=== PATIENT | female | born 1940 | race Caucasian/White ===

== ENCOUNTER → 2016-07-26 | Outpatient (CLI) | payer MEDICARE ==
[~2016-07-26] MED LIST: ALBUTEROL17 GM INH; AMARYL PO; ATIVAN0.5 M1 PO; BENTYL20 MG PO; CALCIUM PO; GLUCOPHAGE500 M1 PO; GLUCOTROL PO; JANUVIA50 MG PO; LISINOPRIL-HCTZ1 T14 PO; LISINOPRIL-HCTZ1 T18 PO; LOPRESSOR PO; LORAZEPAM0.5 MG PO; METFORMIN HCL500 M2 PO; METFORMIN PO; MULTIPLE VITAMI1 T12 PO; OMEPRAZOLE20 M2 PO; PRAVASTATIN SOD20 MG PO; PRILOSEC PO; PRILOSEC20 MG PO; PRIMATENE INH; TOPROL XL PO; TOPROL XL50 MG PO; TRICOR145 MG PO; VALSARTAN-HCTZ1 EAC1 PO; VITAMIN D400 UNI1 PO; ZANTAC150 M1 PO; ZESTORETIC 20/11 TAB PO
--- NOTE | ~2016-07-26 | CR63 ---
[facility] A Service of [facility] & [facility] RADIOLOGY TEXT RESULTS PATIENT: AMY MCCOY LOCATION: [facility] : 42 UNIT #: [id number] AGE: [address]: Olegario Downs MD SEX: F ORDER DR: [id number] [facility] [address] [place], [place] [address] [id number] O MR#: [id number] Acc #: [id number] NAME: AMY MCCOY. : 1940 SEX: F STUDY DATE/TIME: 07/26/2016 7:29 UNIT: [facility] ROOM: STUDY DESCRIPTION: CR Chest 2 View Attending Physician: Olegario Downs M.D. Referring Physician: Olegario Downs M.D. Ordering Physician: Olegario Downs M.D. Primary Care Physician: Gilson Gabriel M.D. MEDICAL IMAGING REPORT This report is preliminary unless electronic signature is present EXAM Chest 2 views 07/26/2016 INDICATIONS 76-year-old female with a history of shortness of air that began today. Renal mass, renal malignancy and breast cancer. Status post radiation therapy, hypertension, asthma. TECHNIQUE Two-view chest was performed and compared with 03/08/2016. Postop changes of axillary node dissection are present on the left. Cardiac silhouette borderline in size and stable. Lungs are emphysematous. Vascularity unremarkable. There is no new effusion pneumothorax or dense consolidation. There is thoracic spondylosis. IMPRESSION 1. Emphysematous changes and borderline cardiac size. No significant change from 03/08/2016. Postop changes of axillary dissection on the left. Dictated by... Alberto Solano M.D. THIS IS AN ELECTRONICALLY VERIFIED REPORT Alberto Solano M.D. at 07/26/2016 3:23 PM Niall TD: 07/26/2016 11:22 JOB #: [id number] MEDICAL IMAGING REPORT COPY
[2016-07-26 07:33] LABS: HEMATOCRIT 38.3 % (35.0-45.0); HEMOGLOBIN 13.1 gm/dL (12.0-16.0); MEAN CELL VOLUME 87.3 FL (83-96); MEAN CORPUSCULAR HEMOGLOBIN 29.9 PG (28-34); MEAN CORPUSCULAR HGB CONC 34.2 g/dL (30-36); MEAN PLATELET VOLUME 7.7 FL (6.5-11.5); RED BLOOD COUNT 4.39 X10e (3.90-5.30); RED CELL DISTRIBUTION WIDTH 13.2 % (11.0-15.5); WHITE BLOOD COUNT 7.5 X10e3 (4.0-10.5)
[2016-07-26 08:08] LABS: ALBUMIN SERUM 3.9 g/dL (3.5-5.0); BILIRUBIN,TOTAL 0.7 mg/dL (0.2-2.0); BUN/CREATININE RATIO 14.54; CALCIUM SERUM 8.9 mg/dL (8.4-10.2); CREATININE SERUM 1.1 mg/dL (0.6-1.4); GLOM FILT RATE Estimated 51.6 mL/min (>60); POTASSIUM 3.9 mmol/L (3.5-5.1); PROTEIN TOTAL SERUM 7.8 g/dL (6.0-8.3)
== END | disposition home or self-care (01) ==
LOC: CRAD 07:06
PROVIDERS: Urology
DX: N28.89 Other specified disorders of kidney and ureter (principal); J43.9 Emphysema, unspecified; Z98.890 Other specified postprocedural states
CPT/HCPCS: 36415; 71020; 80053; 85027

== ENCOUNTER 2016-09-17 10:06 | Emergency (ER) | payer MEDICARE ==
--- NOTE | ~2016-09-17 | EKG ---
PATIENT: AMY MCCOY UNIT #: [id number] Ventricular Rate: 70 BPM Atrial Rate: 70 BPM P-R Interval: 196 ms QRS Duration: 78 ms Q-T Interval: 400 ms QTC Calculation(Bezet): 432 ms P [place]: 28 degrees Calculated R [place]: -12 degrees Calculated T [place]: 15 degrees Diagnosis Line: Normal sinus rhythm Diagnosis Line: Normal ECG Diagnosis Line: When compared with ECG of 15-MAY-2015 12:33, Diagnosis Line: No significant change was found Diagnosis Line: Confirmed by ALTON MONTOYA MD ([id number]) on 09/17/2016 Diagnosis Line: 10:52:09 PM INTERPRETING MD: LINDSAY RAYMUNDO
--- NOTE | ~2016-09-17 | CR72 ---
[facility] A Service of [facility] & [facility] RADIOLOGY TEXT RESULTS PATIENT: AMY MCCOY LOCATION: [facility] : 42 UNIT #: [id number] AGE: [address]: Zhang Emerson MD SEX: F ORDER DR: [id number] [facility] [address] [place], [place] [address] [id number] E MR#: [id number] Acc #: [id number] NAME: AMY MCCOY : 1940 SEX: F STUDY DATE/TIME: 09/17/2016 10:08 UNIT: [facility] ROOM: STUDY DESCRIPTION: CR Chest Single View Portable Attending Physician: Zhang Emerson M.D. Ordering Physician: Zhang Emerson M.D. Primary Care Physician: Gilson Gabriel M.D. MEDICAL IMAGING REPORT This report is preliminary unless electronic signature is present EXAM Portable chest, 1 view DATE OF STUDY 09/17/2016 COMPARISON 07/26/2016 single-view chest. HISTORY Chest pain for 1 day. FINDINGS There is pulmonary hyperexpansion and there is slight elevation of the right hemidiaphragm but no consolidation, effusion, pneumothorax, suspicious nodule, or other acute abnormality. Borderline cardiomegaly. Dictated by... Alfonzo Rocha M.D. THIS IS AN ELECTRONICALLY VERIFIED REPORT Alfonzo Rocha M.D. at 09/18/2016 9:49 AM TEV/aa TD: 09/17/2016 12:47 JOB #: [id number] MEDICAL IMAGING REPORT Page 1 of 1 COPY
[~2016-09-17 10:06] MED LIST changes: -ATIVAN0.5 M1 PO; -JANUVIA50 MG PO; -OMEPRAZOLE20 M2 PO; -TOPROL XL50 MG PO; -VALSARTAN-HCTZ1 EAC1 PO
[2016-09-17 10:19] LABS: BASOPHIL# 0.1 X10e3 (0-0.3); BASOPHIL% 0.7 % (0-2.5); EOSINOPHIL% 0.4 % (0.0-7.0); HEMATOCRIT 38.6 % (35.0-45.0); HEMOGLOBIN 13.2 gm/dL (12.0-16.0); LYMPHOCYTE# 2.5 X10e3 (1.0-3.5); LYMPHOCYTE% 25.7 % (17.0-45.0); MEAN CELL VOLUME 87.5 FL (83-96); MEAN CORPUSCULAR HEMOGLOBIN 29.9 PG (28-34); MEAN CORPUSCULAR HGB CONC 34.2 g/dL (30-36); MEAN PLATELET VOLUME 8.8 FL (6.5-11.5); MONOCYTE# 0.7 X10e3 (0-1.0); MONOCYTE% 6.7 % (3.0-12.0); NEUTROPHIL# 6.5 X10e3 (1.5-7.1); NEUTROPHIL% 66.5 % (40-75); PLATELET COUNT 237 X10e3 (140-420); RED BLOOD COUNT 4.41 X10e (3.90-5.30); RED CELL DISTRIBUTION WIDTH 13.4 % (11.0-15.5); WHITE BLOOD COUNT 9.7 X10e3 (4.0-10.5)
[2016-09-17 10:23] LABS: DIFF IND NO
[2016-09-17 10:25] LABS: POC - CKMB <1.0 ng/mL (0.0-7.9); POC - TROPONIN <0.05 ng/mL (<=0.05)
[2016-09-17 10:42] LABS: ALKALINE PHOSPHATASE 47 U/L (32-92); ALT (SGPT) 10 U/L (10-40); AST (SGOT) 12 U/L (10-42); BILIRUBIN,TOTAL 0.7 mg/dL (0.2-2.0); BLOOD UREA NITROGEN 17 mg/dL (9-23); BUN/CREATININE RATIO 18.88; CALCIUM SERUM 8.6 mg/dL (8.4-10.2); CARBON DIOXIDE 24 mmol/L (22-31); CHLORIDE 96 mmol/L (100-111); CREATININE SERUM 0.9 mg/dL (0.6-1.4); GLUCOSE FASTING 162 mg/dL (70-110); LIPASE 51 U/L (22-51); PROTEIN TOTAL SERUM 7.6 g/dL (6.0-8.3); SODIUM 130 mmol/L (135-145)
[2016-09-17 10:52] LABS: BILIRUBIN, DIRECT <0.1 mg/dL (0.0-0.2); BILIRUBIN,INDIRECT 0.6 mg/dL (0.0-0.9)
[2016-09-17 11:49] LABS: POC - CKMB <1.0 ng/mL (0.0-7.9); POC - TROPONIN <0.05 ng/mL (<=0.05)
[2016-10-03] MEDS ORDERED: VITAMIN D400 UNI1 PO (08:19)
[2016-10-03] MEDS ORDERED: TOPROL XL50 MG PO (08:19)
[2016-10-03] MEDS ORDERED: VALSARTAN-HCTZ1 EAC1 PO (08:19)
[2016-10-03] MEDS ORDERED: JANUVIA50 MG PO (08:19)
[2016-10-03] MEDS ORDERED: PRAVASTATIN SOD20 MG PO (08:20)
[2016-10-03] MEDS ORDERED: OMEPRAZOLE20 M2 PO (08:20)
[2016-10-03] MEDS ORDERED: AMARYL PO (08:20)
[2016-10-03] MEDS ORDERED: ATIVAN0.5 M1 PO (08:20)
== END 2016-09-17 12:21 | disposition home or self-care (01) ==
LOC: CED 10:06
PROVIDERS: Emergency Medicine
DX: R10.13 Epigastric pain (principal); R07.9 Chest pain, unspecified; R06.02 Shortness of breath; E11.9 Type 2 diabetes mellitus without complications; I10 Essential (primary) hypertension; Z90.49 Acquired absence of other specified parts of digestive tract; Z90.710 Acquired absence of both cervix and uterus; Z85.3 Personal history of malignant neoplasm of breast; Z85.528 Personal history of other malignant neoplasm of kidney; Z88.6 Allergy status to analgesic agent; Z88.8 Allergy status to other drugs, medicaments and biological substances
CPT/HCPCS: 36415; 71010; 80048; 80076; 82553; 83690; 83880; 84484; 85025; 93005; 99284

== ENCOUNTER → 2016-09-28 | Outpatient (CLI) | payer MEDICARE ==
[~2016-09-28] MED LIST changes: +ATIVAN0.5 M1 PO; +JANUVIA50 MG PO; +OMEPRAZOLE20 M2 PO; +TOPROL XL50 MG PO; +VALSARTAN-HCTZ1 EAC1 PO
[2016-09-28 09:56] LABS: CALCIUM SERUM 8.8 mg/dL (8.4-10.2); GLOM FILT RATE Estimated 55.5 mL/min (>60); POTASSIUM 4.3 mmol/L (3.5-5.1)
== END | disposition home or self-care (01) ==
LOC: CAMB 07:54
PROVIDERS: Surgery
DX: Z01.812 Encounter for preprocedural laboratory examination (principal); K43.9 Ventral hernia without obstruction or gangrene
CPT/HCPCS: 36415; 80048

== ENCOUNTER → 2016-10-03 | Day surgery (SDC) | payer MEDICARE ==
--- NOTE | ~2016-10-03 | OR ---
Unit #: [id number] #: [id number] Patient: AMY MCCOY [id number] [address] [place], [place] [address] [id number] O MR#: [id number] NAME: AMY MCCOY ROOM: Date of Procedure: 10/03/2016 Admission Date: 10/03/2016 Surgeon: Mak Kurtz Jr., M.D. : 1940 Attending Physician: Mak Kurtz Jr., M.D. Primary Care Physician: Gilson Gabriel M.D. OPERATIVE REPORT INDICATION FOR PROCEDURE The patient is a 76-year-old white female, recently presented to the office complaining of pain in the upper midline of her abdomen and was noted to have an incarcerated upper midline ventral hernia. This has been causing discomfort, enlarging in size and she is brought in this time at her request for repair of this laparoscopically. She understands the procedure including the risks, including that of recurrence, infection, bleeding, intra-abdominal organ injury, and consents. PREOPERATIVE DIAGNOSIS Incarcerated upper midline ventral hernia. POSTOPERATIVE DIAGNOSIS Incarcerated upper midline ventral hernia, noting approximately a 4 cm defect. ANESTHESIA General with endotracheal intubation and 0.5% Marcaine with epinephrine to all port sites. PROCEDURE PERFORMED Laparoscopic reduction and ventral hernia repair of incarcerated upper midline ventral hernia using a 6 x 8 inch Ventralight mesh. DESCRIPTION OF PROCEDURE The patient was positioned in supine position. After being anesthetized and intubated, was prepped and draped in routine fashion for repair and reduction of her ventral hernia. A 5-mm Optiview was introduced in the right lateral abdominal wall area and the abdomen was inflated with CO2 gas. The camera was introduced in the abdomen. There was no evidence of any injury related to introduction of the Optiview. The patient was noted to have an incarcerated upper midline ventral hernia. Additional 11 mm port was placed in right lower quadrant abdominal wall area and a 5 mm in the left upper and left lower quadrant abdominal wall areas under direct visualization. Using the grasping clamp and hook scissors, the omentum within the hernia was then reduced. The defect was approximately 4 to 5 cm in diameter. After hemostasis was achieved with Bovie cautery and several small hemoclips, a 6 x 8 inch Ventralight mesh was tacked in 4 corners, soaked in antibiotic solution, placed intraabdominal, and brought up against the anterior abdominal wall covering the defect with the Endo Close technique. It was then tacked in place with absorbable SecureStrap tacks and after this was completed, the sutures holding it up Unit #: [id number] #: [id number] Patient: AMY MCCOY were then lysed. There was excellent coverage of the defect with good security of the graft and no evidence of any bleeding. CO2 was then expressed from the abdomen after the fascia in the larger port site was approximated using the neoClose technique. The ports were removed. There was no evidence of any bleeding from the port sites. After all CO2 was expressed from the abdomen, the port sites were injected with 0.5% Marcaine with epinephrine. The skin edges were approximated with stainless-steel skin clips and skin stapling device. Sterile dressings were applied externally. Estimated blood loss less than 50 mL. The patient received less than 2000 mL of crystalloid solution during the procedure. Sponges and instrument counts were correct x3. No drains used. No complications. The patient was taken to the recovery room with stable vital signs in satisfactory condition. Dictated by... Mak Kurtz Jr., M.D. JMB/rianna TD: 10/20/2016 01:53 JOB #: [id number] OPERATIVE REPORT Page 1 of 1 X Mak Kurtz MD X PROCEDURE OPERATIVE NOTE
== END | disposition home or self-care (01) ==
LOC: CSUR 05:32
DX: K43.6 Other and unspecified ventral hernia with obstruction, without gangrene (principal); I12.9 Hypertensive chronic kidney disease with stage 1 through stage 4 chronic kidney disease, or unspecified chronic kidney disease; E11.22 Type 2 diabetes mellitus with diabetic chronic kidney disease; E11.65 Type 2 diabetes mellitus with hyperglycemia; N18.9 Chronic kidney disease, unspecified; J45.909 Unspecified asthma, uncomplicated; K21.9 Gastro-esophageal reflux disease without esophagitis; M15.9 Polyosteoarthritis, unspecified; E78.00 Pure hypercholesterolemia, unspecified; E78.5 Hyperlipidemia, unspecified; F41.1 Generalized anxiety disorder; Z87.01 Personal history of pneumonia (recurrent); Z85.528 Personal history of other malignant neoplasm of kidney; Z85.3 Personal history of malignant neoplasm of breast; Z80.0 Family history of malignant neoplasm of digestive organs; Z88.8 Allergy status to other drugs, medicaments and biological substances; Z79.84 Long term (current) use of oral hypoglycemic drugs; Z79.2 Long term (current) use of antibiotics; Z79.1 Long term (current) use of non-steroidal anti-inflammatories (NSAID); Z79.899 Other long term (current) drug therapy; Z90.710 Acquired absence of both cervix and uterus; Z90.49 Acquired absence of other specified parts of digestive tract; Z98.890 Other specified postprocedural states
CPT/HCPCS: 82947; 84295; C1781; J0131; J0330; J0690; J1170; J1650; J2250; J2405; J3010

== ENCOUNTER → 2016-11-24 | Outpatient (CLI) | payer MEDICARE ==
--- NOTE | ~2016-11-24 | MY29 ---
[facility] A Service of [facility] RADIOLOGY TEXT RESULTS PATIENT: AMY MCCOY LOCATION: [facility] : 42 UNIT #: [id number] AGE: [address]: SIENNA GABRIEL MD (INT MED) SEX: F ORDER DR: [id number] [facility] [address] [place], [place] [address] [id number] O MR#: [id number] Acc #: [id number] NAME: AMY MCCOY. : 1940 SEX: F STUDY DATE/TIME: 11/24/2016 14:28 UNIT: [facility] ROOM: STUDY DESCRIPTION: [facility] SCREENING W/ CAD BILAT Attending Physician: Sienna Gabriel M.D. Referring Physician: Sienna Gabriel M.D. Ordering Physician: Sienna Gabriel M.D. Primary Care Physician: Sienna Gabriel M.D. MEDICAL IMAGING REPORT This report is preliminary unless electronic signature is present EXAM Digital screening mammogram, 11/24/2016. COMPARISON 08/09/2015, 05/05/2014 HISTORY The patient has had previous left breast lumpectomy and radiation therapy. Screening FINDINGS Bilateral digital screening mammograms were obtained and reviewed with a FDA-approved CAD device. Examination demonstrates substantial decrease of left breast volume consistent with the patient's history of lumpectomy and radiation therapy. There is some associated skin thickening. Radiation or localization clips are seen within the medial left breast. Scattered benign calcifications. No dominant masses or spiculated lesions. No nipple retraction. IMPRESSION 1. Stable post therapeutic changes of the left breast. 2. No mammographic evidence of malignancy. Patients over the age of 40 are entered into a reminder system with target due date for the next mammogram. A result letter will also be sent to the patient. BIRADS: 2 Benign finding. [facility] A Service of [facility] RADIOLOGY TEXT RESULTS PATIENT: AMY MCCOY LOCATION: [facility] : 42 UNIT #: [id number] AGE: [address]: SIENNA GABRIEL MD (INT MED) SEX: F ORDER DR: Dictated by... Juan José Martin M.D. THIS IS AN ELECTRONICALLY VERIFIED REPORT Juan José Martin M.D. at 11/28/2016 9:30 AM CHRISTOPHER/seven TD: 11/24/2016 17:24 JOB #: [id number] MEDICAL IMAGING REPORT Page 1 of 1 COPY
== END | disposition home or self-care (01) ==
LOC: CWCC 14:03
DX: Z12.31 Encounter for screening mammogram for malignant neoplasm of breast (principal); Z98.890 Other specified postprocedural states
CPT/HCPCS: G0202

== ENCOUNTER 2017-01-21 16:49 | Emergency (ER) | payer MEDICARE ==
[~2017-01-21] VITALS: Ht 162.6 cm; Wt 85.7 kg
--- NOTE | ~2017-01-21 | CT16 ---
[facility] A Service of [facility] RADIOLOGY TEXT RESULTS PATIENT: AMY MCCOY LOCATION: [facility] : 42 UNIT #: [id number] AGE: [address]: Zhang Lloyd MD SEX: F ORDER DR: [id number] [facility] [address] [place], [place] [address] [id number] E MR#: [id number] Acc #: [id number] NAME: AMY MCCOY : 1940 SEX: F STUDY DATE/TIME: 01/21/2017 20:39 UNIT: [facility] ROOM: STUDY DESCRIPTION: CT Angio Chest for PE Attending Physician: Zhang Lloyd Ordering Physician: Ed Vinay Allen M.D. Primary Care Physician: Gilson Gabriel M.D. MEDICAL IMAGING REPORT This report is preliminary unless electronic signature is present EXAM CT angiography of the chest with IV contrast, PE protocol COMPARISON CT abdomen and pelvis dated December 18, 2014. INDICATION The patient is a 76-year-old female with mid sternal chest pain for 4 hours. Tachycardia. FINDINGS Axial CT imaging of the chest was performed after IV administration of 100 mL Isovue-370. Coronal MIPs and sagittal reformats were constructed. This CT exam was performed with one or more of the following radiation dose reduction techniques: automatic exposure control, adjustment of mA and/or kV according to patient size, and iterative reconstruction. No adenopathy within the chest. No acute fractures or suspicious osseous lesions. Surgical clips in the left axilla. Airways are widely patent. There is top normal heart size. Small hiatal hernia. No evidence of pneumothorax, pleural effusion or acute airspace disease. There is pleural-based band-like scarring in the right lateral lung base. This is unchanged from December 18, 2014. There is normal caliber of the thoracic aorta is widely patent. Top normal caliber of the main pulmonary artery measuring up to 3.1 cm, nonspecific finding which can be seen in pulmonary arterial hypertension. No evidence of pulmonary embolus. Left-sided coronary artery calcifications. Prior cholecystectomy. Asymmetric atrophy of the right kidney. There are single bilateral adrenal nodules measuring up to 1.6 cm on the right and 1.7 cm on the left, not significantly changed from December 18, 2014 and favoring benign adenomas given lack of change. Calcifications in the origins of both renal STS. [facility] A Service of [facility] & [facility] RADIOLOGY TEXT RESULTS PATIENT: AMY MCCOY [id number] 42 UNIT #: [id number] AGE: [address]: Zhang Lloyd MD SEX: F ORDER DR: arteries without evidence of significant associated stenosis. IMPRESSION 1. No acute findings within the chest or upper abdomen. Specifically there is no evidence of pulmonary embolus. There is stable scarring in the right lung base. There is minimal calcification of the left anterior descending coronary artery. 2. Minimal dilatation of the main pulmonary artery, a nonspecific finding which can be seen in pulmonary arterial hypertension. 3. Stable single bilateral adrenal nodules, measuring up to approximately 1.7 cm. Given lack of change from November 2014 these would seem most in keeping with benign adenomas. 4. Small hiatal hernia. Dictated by... Warner Rutledge M.D. THIS IS AN ELECTRONICALLY VERIFIED REPORT Warner Rutledge M.D. at 01/28/2017 8:48 PM MEREDITH/dillan TD: 01/22/2017 02:04 JOB #: [id number] MEDICAL IMAGING REPORT Page 1 of 1 COPY
--- NOTE | ~2017-01-21 | EKG ---
PATIENT: AMY MCCOY UNIT #: [id number] Ventricular Rate: 104 BPM Atrial Rate: 104 BPM P-R Interval: 202 ms QRS Duration: 78 ms Q-T Interval: 350 ms QTC Calculation(Bezet): 460 ms P [place]: 43 degrees Calculated R [place]: -15 degrees Calculated T [place]: 54 degrees Diagnosis Line: Sinus tachycardia Diagnosis Line: Minimal voltage criteria for LVH, may be normal Diagnosis Line: variant Diagnosis Line: Poor R wave progression questionable lead position Diagnosis Line: or body habitus Diagnosis Line: Abnormal ECG Diagnosis Line: When compared with ECG of 17-SEP-2016 09:44, Diagnosis Line: Vent. rate has increased BY 34 BPM Diagnosis Line: Minimal criteria for Anterior infarct are now Diagnosis Line: Present Diagnosis Line: Non-specific change in ST segment in Inferior Diagnosis Line: leads Diagnosis Line: Non-specific change in ST segment in Lateral leads Diagnosis Line: Confirmed by DAVID ROMAN MD ([id number]) on 01/22/2017 Diagnosis Line: 2:03:36 PM INTERPRETING MD: JESSIE RAYMUNDO
[2017-01-21 18:52] LABS: BASOPHIL# 0.1 X10e3 (0-0.3); BASOPHIL% 0.8 % (0-2.5); EOSINOPHIL# 0.1 X10e3 (0-0.7); HEMATOCRIT 37.8 % (35.0-45.0); HEMOGLOBIN 12.8 gm/dL (12.0-16.0); LYMPHOCYTE# 2.5 X10e3 (1.0-3.5); LYMPHOCYTE% 21.6 % (17.0-45.0); MEAN CELL VOLUME 87.4 FL (83-96); MEAN CORPUSCULAR HEMOGLOBIN 29.7 PG (28-34); MEAN PLATELET VOLUME 7.5 FL (6.5-11.5); MONOCYTE# 0.7 X10e3 (0-1.0); MONOCYTE% 6.4 % (3.0-12.0); NEUTROPHIL% 70.2 % (40-75); PLATELET COUNT 258 X10e3 (140-420); RED BLOOD COUNT 4.32 X10e (3.90-5.30); RED CELL DISTRIBUTION WIDTH 14.1 % (11.0-15.5); WHITE BLOOD COUNT 11.4 X10e3 (4.0-10.5)
[2017-01-21 18:53] LABS: DIFF IND NO
[2017-01-21 19:04] LABS: POC - CKMB <1.0 ng/mL (0.0-7.9); POC - TROPONIN <0.05 ng/mL (<=0.05)
[2017-01-21 19:13] LABS: BUN/CREATININE RATIO 13.33; CALCIUM SERUM 8.7 mg/dL (8.4-10.2); CREATININE SERUM 0.9 mg/dL (0.6-1.4); POTASSIUM 3.4 mmol/L (3.5-5.1)
== END 2017-01-21 22:45 | disposition home or self-care (01) ==
LOC: CED 16:49
PROVIDERS: Emergency Medicine
DX: I10 Essential (primary) hypertension (principal); K21.9 Gastro-esophageal reflux disease without esophagitis; Z90.49 Acquired absence of other specified parts of digestive tract; Z88.8 Allergy status to other drugs, medicaments and biological substances
CPT/HCPCS: 36415; 71275; 80048; 82553; 84484; 85025; 85379; 93005; 99284; Q9967

== ENCOUNTER → 2017-01-26 | Outpatient (CLI) | payer MEDICARE ==
--- NOTE | ~2017-01-26 | CR63 ---
[facility] A Service of [facility] & [facility] RADIOLOGY TEXT RESULTS PATIENT: AMY MCCOY LOCATION: [facility] : 42 UNIT #: [id number] AGE: [address]: Olegario Downs MD SEX: F ORDER DR: [id number] [facility] [address] [place], [place] [address] [id number] O MR#: [id number] Acc #: [id number] NAME: AMY MCCOY : 1940 SEX: F STUDY DATE/TIME: 01/26/2017 8:33 UNIT: [facility] ROOM: STUDY DESCRIPTION: CR Chest 2 View Attending Physician: Olegario Downs M.D. Referring Physician: Olegario Downs M.D. Ordering Physician: Olegario Downs M.D. Primary Care Physician: Gilson Gabriel M.D. MEDICAL IMAGING REPORT This report is preliminary unless electronic signature is present EXAM Chest 2 views dated 01/26/17. COMPARISON Single view chest dated 09/17/2016. HISTORY Shortness of air, renal mass. Follow up today. Cancer involving the right kidney and breast. History of asthma. FINDINGS 2 views of the chest were obtained. There appears to be some opacity along the lateral aspect of the right lower hemithorax abutting the rib cage. Its appearance is similar to that on the prior study from 5 months ago. On the lateral view there is no significant abnormality noted. Mild right lingular atelectasis/infiltrate cannot be excluded. Remaining lungs are well-aerated. Heart is of normal size. Postoperative changes are in the left axillary region. Endplate tiny osteophytes are in the T-spine. Dictated by... Cooper Torres M.D. THIS IS AN ELECTRONICALLY VERIFIED REPORT Cooper Torres M.D. at 01/30/2017 2:44 PM CPR/gz TD: 01/26/2017 13:06 JOB #: [id number] MEDICAL IMAGING REPORT Page 1 of 1 COPY
== END | disposition home or self-care (01) ==
LOC: CRAD 08:07
DX: N28.89 Other specified disorders of kidney and ureter (principal)
CPT/HCPCS: 71020